=== PATIENT | female | born 1960 | race Caucasian/White ===

== ENCOUNTER → 2021-03-28 | Outpatient (CLI) | payer MEDICARE ==
[2014-05-05 15:58] VITALS: BP 121/74
[~2021-03-28] MED LIST: ASPI-630 PO; ISOS30TA68 PO; LIPITOR80 MG PO; LISI1TAB37 PO; LISI2.5T12 PO; METO25TA2 PO; NITR0.4T22 SL; PRAS10TA9 PO
--- NOTE | 2021-03-29 08:20 | RAD ---
BILATERAL DIGITAL SCREENING 2-D AND 3-D MAMMOGRAM INDICATION: Routine screening. COMPARISON: None Interpretation was made using CAD. FINDINGS: Breast Density: A RIGHT BREAST: No suspicious masses, calcifications or areas of architectural distortion are seen. LEFT BREAST: No suspicious masses, calcifications or areas of architectural distortion are seen. IMPRESSION: 1. No imaging evidence of malignancy. ASSESSMENT: BI-RADS 1. Negative. RECOMMENDATION: Routine annual screening mammogram. The facility will notify the patient of the results via mail. Patient information will be entered int o the mammography reminder system with a target recall date for the next mammogram. A reminder letter will be generated by the facility. Electronically signed by: Timothy Wang Jr., MD (03/29/2021 8:18 AM) [id number]
== END ==
LOC: MAMMO 14:40
PROVIDERS: ATTEND Family Medicine
DX: Z12.31 Encounter for screening mammogram for malignant neoplasm of breast (principal)
CPT/HCPCS: 77063; 77067